=== PATIENT | male | born 1950 | race African-American/Black ===

== ENCOUNTER 2019-04-24 17:58 | Emergency (ER) | payer MEDICARE, MEDICAID ==
[~2019-04-24] VITALS: Ht 170.2 cm; Wt 82.0 kg
[~2019-04-24 17:58] MED LIST: ASPI-1158; ATOR80TA; CLOP75TA15; EYE; LISI10TA5; OMEP20TA2; TIMOLOL 0.5%
[2019-04-24] MEDS ORDERED: TRAMADOL 50MG TABLET PO ONE (20:00)
[2019-04-24 20:52] VITALS: BP 183/84
== END 2019-04-25 05:58 | disposition home or self-care (01) ==
LOC: ER 18:56
DX: M54.41 Lumbago with sciatica, right side (principal)
CPT/HCPCS: 99283